=== PATIENT | female | born 1940 | race African-American/Black ===

== ENCOUNTER 2017-11-07 10:15 | Outpatient (CLI) | payer MEDICARE ==
--- NOTE | 2017-11-07 11:13 | RAD ---
CHEST PA AND LATERAL: HISTORY: A 76-year-old female with dyspnea. COMPARISON: 02/01/16. FINDINGS: Heart size is normal. The lungs are clear. Atherosclerosis of the aorta with some ectasia. IMPRESSION: Atherosclerosis of the aorta with some ectasia. No acute intrathoracic disease. POS: [facility]
== END 2017-11-07 10:16 | disposition home or self-care (01) ==
LOC: RAD 10:15
PROVIDERS: ATTEND Internal Medicine Critical Care Medicine
DX: R06.00 Dyspnea, unspecified (principal); I70.0 Atherosclerosis of aorta
CPT/HCPCS: 71046

== ENCOUNTER 2018-03-20 09:32 | Outpatient (CLI) | payer MEDICARE | END 2018-03-20 09:33 | disposition home or self-care (01) | LOC: BICMAMMO 09:32 | PROVIDERS: ATTEND Internal Medicine | DX: Z12.31 Encounter for screening mammogram for malignant neoplasm of breast (principal); R92.1 Mammographic calcification found on diagnostic imaging of breast; Z80.3 Family history of malignant neoplasm of breast | CPT/HCPCS: 77063; 77067 ==

== ENCOUNTER 2018-12-12 09:26 | Outpatient (CLI) | payer MEDICARE ==
--- NOTE | 2018-12-12 11:27 | BD ---
DEXA BONE DENSITY STUDY: Date: 12/12/18 HISTORY: Postmenopausal. FINDINGS: Lumbar Spine: BMD (g/cm2) L1 1.312 T-Score: +2.9 L2 1.479 T-Score: +4.1 L3 1.568 T-Score: +4.4 L4 1.564 T-Score: +4.6 Total 1.486 T-Score: +4.0 Left Femoral Neck: 1.131 T-Score: +2.5 Total Femur: 1.352 T-Score: +3.4 IMPRESSION: Normal bone mineral density of the lumbar spine and left femoral neck. POS: [facility]
== END 2018-12-12 09:27 | disposition home or self-care (01) ==
LOC: BICMAMMO 09:26
PROVIDERS: ATTEND Nurse Practitioner Adult Health
DX: Z13.820 Encounter for screening for osteoporosis (principal); Z78.0 Asymptomatic menopausal state
CPT/HCPCS: 77080

== ENCOUNTER 2019-03-16 11:35 | Outpatient (CLI) | payer MEDICARE ==
--- NOTE | 2019-03-16 12:05 | RAD ---
XR Chest Pa Lat @ [facility] HISTORY: Dyspnea COMPARISON: 11/07/2017 FINDINGS: The heart size is normal. The lungs are well expanded without focal areas of consolidation, pneumothorax or pleural effusions. The aorta is tortuous. There are degenerative changes in the spine. IMPRESSION: No radiographic evidence of acute cardiopulmonary process.
== END 2019-03-16 11:36 | disposition home or self-care (01) ==
LOC: RAD 11:35
PROVIDERS: ATTEND Internal Medicine Critical Care Medicine
DX: R06.00 Dyspnea, unspecified (principal)
CPT/HCPCS: 36415; 71046; 80053; 80061; 81003; 81015; 82043; 83036; 85025

== ENCOUNTER 2021-02-22 09:32 | Outpatient (CLI) | payer MEDICARE | END 2021-02-22 09:33 | disposition home or self-care (01) | LOC: BICMAMMO 09:32 | PROVIDERS: ATTEND Internal Medicine | DX: Z12.31 Encounter for screening mammogram for malignant neoplasm of breast (principal) | CPT/HCPCS: 77063; 77067 ==

== ENCOUNTER 2024-03-25 09:24 | Outpatient (CLI) | payer MEDICARE, OTHER | END 2024-03-25 09:25 | disposition home or self-care (01) | LOC: RAD 09:24 | PROVIDERS: ATTEND Internal Medicine Critical Care Medicine | DX: R06.00 Dyspnea, unspecified (principal); I51.7 Cardiomegaly | CPT/HCPCS: 71046 ==

== ENCOUNTER 2024-10-05 10:59 | Outpatient (CLI) | payer OTHER | END 2024-10-05 11:00 | disposition home or self-care (01) | LOC: RAD 10:59 | PROVIDERS: ATTEND Internal Medicine Critical Care Medicine | DX: R06.00 Dyspnea, unspecified (principal); I51.7 Cardiomegaly | CPT/HCPCS: 71046 ==